=== PATIENT | male | born 1965 | race Caucasian/White ===

== ENCOUNTER 2017-08-20 14:17 | Emergency (ER) | payer BC, OTHER ==
[2017-08-20 14:39] VITALS: BP 131/77; PULSE 63; RESP 18; TEMP 97.7; O2SAT 94
--- NOTE | 2017-08-20 16:11 | EDPHY ---
General Time Seen by Provider: 08/20/17 16:01 Narrative: CHIEF COMPLAINT: Left shoulder pain HISTORY OF PRESENT ILLNESS: Patient presents with complaints of acute on chronic left shoulder pain. He states that he has a known left rotator cuff injury. This was diagnosed last fall in [place]. He was treated with physical therapy and symptomatic care. He was told that was not surgical at that time. With past 2 weeks he has been [place] in feels that 7 or 8 days ago he aggravated the injury. He says he was in the water when he was lifting up a relative. When he lifted them up overhead he felt a sudden onset of pain in the left shoulder. It radiated multiple directions. Associated with severe, 10/10 pain in the left shoulder. No bony tenderness. He has not fallen on the shoulder or sustained any trauma to it. He had no position of comfort at 1st. He then started taking diclofenac that he had from a previous prescription that has significantly improved his pain. He also applied topical lidocaine patches from previous prescription with significant improvement night. He has no numbness or tingling. No weakness. His pain is too severe to elevate the left shoulder. He is here because he is visiting from out of town, scheduled started backpacking trip tomorrow for 3 months. He was told by his insurance company to come to the emergency department for MRI. No other associated complaints or modifying factors. 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 Lives and works independently in [place]. Traveling for 3 months here for a backpacking trip FAMILY HISTORY: Noncontributory EXAMINATION General Appearance: Alert, no distress Cardiovascular: Symmetric radial pulses 2+. Brisk cap refill in the left hand. Neurological: A&O, sensory in the median, ulnar and radial distributions are symmetric. 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 Interossei strength symmetric. Skin: Warm and dry, no rash. No petechiae or purpura Extremities: Tenderness of the left deltoid at the insertion of the supraspinatus. There is no bony tenderness of the left shoulder. Range of the left shoulder difficult to test due to pain. He is able to abduct and externally rotate the shoulder. Neurovascular intact distal to the left shoulder pain. Psychiatric: Mood and affect normal DIFFERENTIAL DIAGNOSES: Including but not limited to rotator cuff injury, shoulder sprain, strain, fracture, subluxation MDM: 4:20 p.m. Acute on chronic left shoulder pain that is suspected rotator cuff injury. No bony tenderness. No mechanism that would suggest bony injury. His neuro exam is within normal limits. He is declining x-ray and asking for MRI. We had a very lengthy discussion as to why I am unable to obtain an MRI in the emergency department this time. We discussed discharge home with further diclofenac and orthopedic follow-up for outpatient MRI. We discussed ED precautions for worsening pain, numbness, tingling, weakness. He is comfortable this plan and discharged home stable condition. SUPERVISION: This patient was independently evaluated without direct involvement of or examination by the attending physician. ED Precautions: Worsening pain. Erythema, edema, cyanosis, pallor, paresthesia or anesthesia. - History Smoking Status: Never smoked - Objective Vital Signs: Initial Vital Signs Temperature (C) 97.7 F 08/20/17 14:35 Heart Rate 63 08/20/17 14:35 Respiratory Rate 18 08/20/17 14:35 Blood Pressure 131/77 H 08/20/17 14:35 O2 Sat (%) 94 08/20/17 14:35 O2 Delivery Mode Room Air Allergies/Adverse Reactions: No Known Allergies Allergy (Unverified 08/20/17 14:34) Home Medications: Medication Instructions Recorded Diclofenac Sodium 08/20/17 Diclofenac Sodium [Diclofenac 100 mg PO DAILY #30 tab.er.24h 08/20/17 Sodium ER] Departure - Departure Disposition: Home, Routine, Self-Care Clinical Impression: Injury of left rotator cuff Qualifiers: Encounter type: initial encounter Qualified Code(s): S46.002A - Unspecified injury of muscle(s) and tendon(s) of the rotator cuff of left shoulder, initial encounter Shoulder sprain Qualifiers: Encounter type: initial encounter Shoulder sprain type: unspecified sprain Laterality: left Qualified Code(s): S43.402A - Unspecified sprain of left shoulder joint, initial encounter Condition: Good Instructions: Rotator Cuff Injury (ED) Additional Instructions: 1. Continue your previous diclofenac as prescribed as needed 2. Contact the on-call orthopedist as provided to be seen outpatient for further care 3. ED precautions for worsening pain, numbness, tingling, weakness, wrist drop Referrals: BRINDA MYLES [Other] - As per Instructions Jos Duran MD [Medical Doctor] - As per Instructions Stand Alone Forms: Airline Excuse Prescriptions: Diclofenac Sodium [Diclofenac Sodium ER] 100 mg PO DAILY #30 tab.er.24h
== END 2017-08-20 16:35 | disposition home or self-care (01) ==
DX: S43.402A Unspecified sprain of left shoulder joint, initial encounter (principal); S46.002A Unspecified injury of muscle(s) and tendon(s) of the rotator cuff of left shoulder, initial encounter; W19.XXXA Unspecified fall, initial encounter